=== PATIENT | male | born 1955 | race Caucasian/White ===

== ENCOUNTER 2021-09-15 07:59 | Day surgery (SDC) | payer OTHER ==
[~2021-09-15] VITALS: Ht 185 cm; Wt 135.0 kg
[~2021-09-15 07:59] MED LIST: HCTZ12.5 MG PO; PRINIVIL10 MG PO; PROTONIX 40MG T40 MG PO; VITAMIN C1000 MG PO; VITAMIN D350 MC3 PO; ZINC50 M1 PO
--- NOTE | 2021-09-15 15:28 | NUR ---
PT HAD A LTKR THIS DATE. PT. WILL D/C HOME WITH SPOUSE. [facility] TO DELIVER A RW. PT. REQUESTED [facility] OUTPT. FIRST APPT. IS WED, 09/16/21 @ 9:30 A.M.
[2021-09-16 05:55] LABS: BASOPHIL 0.1 % (0-2); EOSINOPHIL 0 % (0-7); HCT 36.5 % (42.0-52.0); HGB 12.5 g/dl (13.2-18.0); LYMPHOCYTE 6.7 % (15-48); MCH 30.1 pg (25.0-31.0); MCHC 34.2 g/dL (32.0-36.0); MONOCYTE 5.6 % (0-12); MPV 10.1 fL (6.0-9.5); NEUTROPHIL 87.1 % (41-80); NRBC 0; PLT 194 K/uL (150-400); RBC 4.15 M/uL (4.70-6.00); RDW 12.8 % (11.5-14.0); WBC 12.8 K/uL (4.0-10.5)
[2021-09-16 06:17] LABS: BUN/CREAT RATIO (CALC) 14.1 RATIO; CREATININE 0.85 mg/dL (0.67-1.17); POTASSIUM 4.2 mmol/L (3.5-5.1)
[2021-09-16] MEDS ORDERED: FEOSOL325 MG PO (08:55)
[2021-09-16] MEDS ORDERED: XARELTO10 MG PO (08:55)
[2021-09-16] MEDS ORDERED: OXYCODONE-ACET1 EAC1 PO (08:55)
== END 2021-09-16 10:30 | disposition home or self-care (01) ==
LOC: FAS 07:59 → FOFB 11:59 → FAS 09-16 10:30
PROVIDERS: Legal Medicine
DX: M17.12 Unilateral primary osteoarthritis, left knee (principal); M21.162 Varus deformity, not elsewhere classified, left knee; M25.762 Osteophyte, left knee; M67.262 Synovial hypertrophy, not elsewhere classified, left lower leg; I10 Essential (primary) hypertension; E11.9 Type 2 diabetes mellitus without complications; J44.9 Chronic obstructive pulmonary disease, unspecified
CPT/HCPCS: 36415; 73560; 80048; 85025; 86850; 86900; 86901; 94010; 97162; 97166; 97530-GP; 97535; C1713; C1776; J0171; J0697; J1100; J1170; J1885; J2001; J2250; J2270; J2370; J2405; J2704; J2795; J3010; J7120